=== PATIENT | female | born 1995 | race Two or more races ===

== ENCOUNTER 2023-12-05 15:18 | Emergency (ER) | payer OTHER ==
[~2023-12-05] VITALS: Ht 172.7 cm; Wt 86.2 kg
[2023-12-05] MEDS ORDERED: CLONAZEPAM1 MG PO (15:53)
[2023-12-05] MEDS ORDERED: LITHOBID300 M1 PO (15:53)
[2023-12-05 17:31] LABS: HEMATOCRIT 39.7 % (36.0-45.00); HEMOGLOBIN 13.8 g/dL (12.0-15.00); MEAN CELL VOLUME 93.6 fL (80.00-100.00); MEAN CORPUSCULAR HEMOGLOBIN 32.6 pg (27.00-32.0); MEAN CORPUSCULAR HGB CONC 34.8 g/dl (32.0-36.0); PLATELET COUNT 248 K/uL (150-450); RED BLOOD COUNT 4.24 M/uL (4.00-6.00); RED CELL DISTRIBUTION WIDTH 13.3 % (11.5-14.5)
[2023-12-05 17:42] LABS: INR 0.98; PARTIAL THROMBOPLASTIN TIME 25.9 SECONDS (22.0-34.0); PROTHROMBIN TIME 10.3 SECONDS (9.0-11.5)
[2023-12-05 17:55] LABS: PH,URINE 5.5 (5.0-8.0); URINE APPEARANCE Cloudy; URINE BILIRRUBIN Negative (NEGATIVE); URINE BLOOD Moderate; URINE COLOR Yellow; URINE GLUCOSE Negative (NEGATIVE); URINE LEUKOCYTE Trace; URINE NITRATE Negative; URINE PROTEIN Negative (NEGATIVE); URINE UROBILINOGEN 0.2 E.U./dl
[2023-12-05 17:59] LABS: URINE BACTERIA 4230.8 uL (0.0-1933); URINE EPITHELIAL CELLS 47.1 uL (0.0-38.8); URINE RBC 18.9 uL (0.0-20.8); URINE WBC 51.4 uL (0.0-23.2)
[2023-12-05 18:03] LABS: CALCIUM 8.6 mg/dL (8.5-10.1); CREATININE SERUM 0.58 mg/dL (0.55-1.02); GFR 122.06; POTASSIUM 3.41 mEq/L (3.5-5.1)
[2023-12-05] MEDS ORDERED: MACROBID 100 M100 MG PO (19:22)
== END 2023-12-05 20:10 | disposition home or self-care (01) ==
LOC: ER 15:18
PROVIDERS: Nurse Practitioner Family
DX: O23.40 Unspecified infection of urinary tract in pregnancy, unspecified trimester (principal); Z3A.01 Less than 8 weeks gestation of pregnancy; R10.2 Pelvic and perineal pain